=== PATIENT | male | born 1970 | race Hispanic/Latino ===

== ENCOUNTER 2024-01-15 11:11 | Emergency (ER) | payer SELFPAY ==
[2024-01-15 11:20] VITALS: BP 166/96
[2024-01-15 11:29] VITALS: BP 152/97
--- NOTE | 2024-01-15 11:50 | ED.GENMED ---
History of Present Illness
General
Chief Complaint: Heart Rate Problem
Source: patient
Time Seen by Provider: 01/15/24 11:23
History of Present Illness
History of Present Illness:
This patient is a 53-year-old male who states that 2 months ago he was noted to have an elevated blood pressure. He states that with diet changes and trying to keep himself calm he was able to 'stabilize' his blood pressure. However, for the last
week or so, he has been checking his blood pressure and noted that it has been elevated in the range of 150/90. Physically he says 'I feel well'. He does note occasional palpitations without associated symptoms, otherwise no complaints. He is
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 He denies headache, chest pain, dyspnea, nausea, vomiting, numbness, tingling, focal weakness, change in vision, change in speech, change in balance, or other complaints.
Past History
Past History
ED Past Medical History: None
ED Past Surgical History: None
Social History
Tobacco: Non-smoker
Alcohol: None
Drug: None
Personal:
Employment: Employed
Phy Exam
Physical Exam
Physical Exam:
GENERAL: Alert , in no apparent distress
EYE: pupils equal and reactive
NECK: Supple, no significant adenopathy.
ENT: o/p clr, mmm.
CARDIAC: Regular rate and rhythm .
LUNGS: Clear breath sounds bilaterally, no acute respiratory distress, no wheezes/rales/rhonchi
ABDOMEN: Soft, without focal tenderness, no r/g, no cvat
NEUROLOGICAL: Alert and oriented, no focal neuro deficits, [id number] normal, motor 5 out of 5, sensory intact
SKIN: Warm and dry, skin intact.
MUSCULOSKELETAL: No edema, well perfused.
PSYCH: Normal and appropriate interaction.
Course
Orders/Labs/Results
Orders:
Orders
01/15/24 11:16
ECG [Electrocardiogram (*1)] Urgent
Reason for Study: Palpitations
EKG- Treatment ONCE
01/15/24 11:50
Cardiac Monitoring- Treatment ONCE
01/15/24 11:53
Complete Blood Count/No Diff Urgent
Comprehensive Metabolic Panel Urgent
TSH Urgent
Abnormal Lab Results
01/15/24
11:53
RBC 4.45 L 10^6/uL
(4.70-6.10)
MCH 31.5 H pg
(27.0-31.0)
Glucose 114 H mg/dl
(70-99)
01/15/24 11:53
01/15/24 11:53
Vital Signs
Initial and Last Documented VS:
Initial Vital Signs
Temp Pulse Resp BP Pulse Ox
98.4 F 73 18 166/96 99
01/15/24 11:20 01/15/24 11:20 01/15/24 11:20 01/15/24 11:20 01/15/24 11:20
Last Documented Vital Signs
Temp Pulse Resp BP Pulse Ox
98.4 F 80 16 152/97 100
01/15/24 11:20 01/15/24 11:30 01/15/24 12:12 01/15/24 11:29 01/15/24 12:12
*Critical Care Note
Total Time (30-74mins, 75-104mins- exclusive of procedures): Not Applicable
Update Note
Update Note:
Patient presents to the Emergency Department with elevated blood pressure and palpitations
Number and Complexity of Problems Addressed at the Encounter
� Chronic conditions affecting care:
� Acute Exacerbation and/or Progression of Chronic Illness:
� Differential Diagnosis includes: But not limited to hyperthyroidism, electrolyte disorder, etc. etc.
Amount and/or Complexity of Data to be Reviewed and Analyzed
� I performed an independent evaluation of and my interpretation is:
EKG: Read by me, normal sinus rhythm, normal rate, normal axis, no acute ischemia
CT:
Xrays:
Laboratory Studies:generally unremarkable
Other:
� Review of other/old records reveals:
� Clinical information was obtained by an independent historian:
� Prescriptions/Medications Considered but not given:
� Further testing considered but not performed:
Risk of Complications and/or Morbidity or Mortality of Patient Management
� Social determinants of health affecting care:
� Discussion with other providers (PCP, Hospitalists, Consultants, etc):
� Escalation of care including admission/observation vs risk of discharge considered:call to [facility], where pt has appt on Monday. I have been awaiting call back from bakari/doctor-no response. Pt's bp now 130's/80's and
remains asx. Again using language line, d/w pt import of f/u on Monday and reasons to rted in meantime. No new sxs.
ED Attending Note
-
Portions of this chart may have been created with voice recognition software.� Occasional wrong word or��sound alike� substitutions may have occurred due to the inherent limitations of voice recognition software.
Discharge Plan
Departure
Patient Disposition: Home (Routine Discharge)
Date of Disposition: 01/15/24
Time of Disposition: 14:52
Patient with high blood pressure during this ER visit?: Yes
Condition: Good
Discharge Problem:
Palpitations
Instructions: Palpitations (DC), BLOOD PRESSURE
Referrals:
NONE,* [Family Provider] -
Activity Restrictions/Additional Instructions:
PLEASE PROCEED TO THE CLINIC FOR YOUR SCHEDULED APPOINTMENT ON MONDAY. IF YOU DEVELOP VOMITING, CHEST PAIN, TROUBLE BREATHING, NUMBNESS, SEVERE HEADACHE, CHANGE IN VISION OR OTHER WORRISOME SIGNS, GO TO THE ER IMMEDIATELY!
Interventions
Interventions:
*Risk Screen - Suicide Last Done: 01/15/24 11:20
*General Assessment Last Done: 01/15/24 11:20
*Neglect/Abuse Screening Last Done: 01/15/24 11:20
ED- Fall Risk Assessment Last Done: 01/15/24 11:43
*ED COVID-19 Vaccine History Last Done: 01/15/24 11:40
ED- Cardiac Assessment Last Done: 01/15/24 11:40
ED- Pulmonary Assessment Last Done: 01/15/24 11:40
Discharge Date and Time
Print Language: LATVIAN
[2024-01-15 12:03] LABS: Hematocrit 40.1 % (39.0-52.0); Mean Corp Hgb Conc. 34.9 g/dL (33.0-37.0); Mean Corpuscular Hgb 31.5 pg (27.0-31.0); Mean Corpuscular Volume 90.1 fL (80.0-94.0); Mean Platelet Volume 9.6 fL (7.4-10.4); Platelet Count 230 10^3/uL (130-400); Red Blood Cell Count 4.45 10^6/uL (4.70-6.10); Red Cell Dist. Width 12.8 % (11.5-14.5); White Blood Cell Count 5.3 10^3/uL (4.8-10.8)
[2024-01-15 12:22] LABS: ALT (SGPT) 18 U/L (0-50); AST (SGOT) 23 U/L (17-59); Albumin 4.5 g/dl (3.5-5.0); Alkaline Phosphatase 83 U/L (38-126); Blood Urea Nitrogen 15 mg/dl (9-20); Calcium 10.1 mg/dl (8.4-10.2); Carbon Dioxide 29 mmol/L (22-30); Chloride 101 mmol/L (98-107); Glucose 114 mg/dl (70-99); Potassium 4.3 mmol/L (3.5-5.1); Sodium 138 mmol/L (135-145); Total Bilirubin 0.6 mg/dl (0.2-1.3); Total Protein 6.9 g/dl (6.3-8.2); eGFR > 60.00
[2024-01-15 12:50] LABS: TSH 0.63 uIU/ml (0.47-4.68)
[2024-01-15 14:58] VITALS: BP 134/93
== END 2024-01-15 15:03 | disposition home or self-care (01) ==
LOC: EMR 11:11
PROVIDERS: EMERGENCY PHYSICIAN Emergency Medicine
DX: R00.2 Palpitations (principal); R03.0 Elevated blood-pressure reading, without diagnosis of hypertension
CPT/HCPCS: 99283; 80053; 84443; 85027; 93005

== ENCOUNTER → 2024-09-17 17:09 | Outpatient (REF) | payer OTHER, SELFPAY ==
[2024-09-17 17:59] LABS: ALT (SGPT) 24 U/L (0-50); AST (SGOT) 31 U/L (17-59); Alkaline Phosphatase 127 U/L (38-126); Blood Urea Nitrogen 32 mg/dl (9-20); Calcium 9.7 mg/dl (8.4-10.2); Carbon Dioxide 29 mmol/L (22-30); Chloride 105 mmol/L (98-107); Glucose 152 mg/dl (70-99); Potassium 4.8 mmol/L (3.5-5.1); Sodium 140 mmol/L (135-145); Total Bilirubin 0.3 mg/dl (0.2-1.3); Total Protein 6.6 g/dl (6.3-8.2); eGFR > 60.00
[2024-09-20 08:05] LABS: Aldosterone, Serum 6.3 ng/dL; Renin Activity Results 0.3 ng/mL/hr
== END ==
LOC: CLINIC 17:09
PROVIDERS: ATTENDING PHYSICIAN Nurse Practitioner Adult Health
DX: I10 Essential (primary) hypertension (principal)
CPT/HCPCS: 36415; 80053; 82088; 84244; 84443

== ENCOUNTER → 2025-01-07 15:59 | Outpatient (REF) | payer OTHER, SELFPAY ==
[2025-01-07 17:40] LABS: Blood Urea Nitrogen 32 mg/dl (9-20); Calcium 9.6 mg/dl (8.4-10.2); Carbon Dioxide 25 mmol/L (22-30); Chloride 108 mmol/L (98-107); Glucose 101 mg/dl (70-99); Potassium 4.5 mmol/L (3.5-5.1); Sodium 139 mmol/L (135-145); eGFR > 60.00
[2025-01-08 09:12] LABS: Glycohemoglobin (HgbA1c) 5.6 % (4.0-5.6)
== END ==
LOC: CLINIC 15:59
PROVIDERS: ATTENDING PHYSICIAN Nurse Practitioner Adult Health
DX: I10 Essential (primary) hypertension (principal); R73.9 Hyperglycemia, unspecified
CPT/HCPCS: 36415; 80048; 83036

== ENCOUNTER → 2025-04-23 15:57 | Outpatient (REF) | payer OTHER, SELFPAY ==
[2025-04-23 17:02] LABS: Blood Urea Nitrogen 33 mg/dl (9-20); Calcium 9.2 mg/dl (8.4-10.2); Carbon Dioxide 27 mmol/L (22-30); Chloride 104 mmol/L (98-107); Glucose 100 mg/dl (70-99); Potassium 4.0 mmol/L (3.5-5.1); Sodium 137 mmol/L (135-145); eGFR > 60.00
== END ==
LOC: CLINIC 15:57
PROVIDERS: ATTENDING PHYSICIAN Nurse Practitioner Adult Health
DX: I10 Essential (primary) hypertension (principal)
CPT/HCPCS: 36415; 80048